=== PATIENT | female | born 1960 | race Caucasian/White ===

== ENCOUNTER 2019-12-14 21:41 | Emergency (ER) | payer BC ==
[2019-12-14] MEDS ORDERED: Sodium Chloride 0.9% 1,000 ML IV ONE (21:42)
[2019-12-14] MEDS ORDERED: Lactated Ringers 1,000 ML IV ONE (21:42)
[2019-12-14] MEDS ORDERED: Heparin Sodium 5,000 Units/ML Vial IVPUSH STA (22:04)
[2019-12-14] MEDS ORDERED: Heparin Sodium/D5W 25,000 UNITS/500 ML BAG IV SCH (22:15)
[2019-12-14] MEDS ORDERED: EPINEPHrine 1:10,000 1 MG/10 ML Syringe ONE ×2 (22:19→22:20)
--- NOTE | 2019-12-14 22:28 | EDM.PDOC ---
ED HPI GENERAL MEDICAL PROBLEM - General Chief Complaint: Respiratory Problem Stated Complaint: SOB Time Seen by Provider: 12/14/19 21:55 Source of Information: Reports: Patient, Family () History Limitations: Reports: No Limitations - History of Present Illness INITIAL COMMENTS - FREE TEXT/NARRATIVE: Mrs. Patricio is a very pleasant 59-year-old woman with a past medical history significant for obesity, hypertension, obstructive sleep apnea on nightly CPAP, and prediabetes, who states that she underwent a D&C at [facility] on 12/04. She was discharged home the same day. She states that she developed dyspnea 2 days later, on 12/06/2019, which has become progressively worse. Today it was especially bad. She has had a slight nonproductive cough. No recent fever. No recent chest pain or palpitations. No prior similar symptoms. She has not any [id number] or home remedies to attempt to treat her symptoms. The D&C apparently revealed a low-grade endometrial carcinoma. The patient will require a hysterectomy. The patient's tells me that the patient was given a single dose of (likely subcutaneous heparin) on the day of her D&C, but no anticoagulant since. Here in the ED, the patient is noted to be tachycardic, tachypneic, hypothermic , and hypoxemic, with an oxygen saturation of 81% on room air. The patient's PCP is Dr. Candie Kelley. Her OB/Gyne is Dr. Yovana Viera. - Related Data Allergies Allergy/AdvReac Type Severity Reaction Status Date / Time No Known Allergies Allergy Verified 12/14/19 22:03 Past Medical History Cardiovascular History: Reports: Hypertension Respiratory History: Reports: Sleep Apnea (nightly CPAP) Endocrine/Metabolic History: Reports: Obesity/BMI 30+, Other (See Below) ( Prediabetes) - Past Surgical History HEENT Surgical History: Reports: Tonsillectomy Female Surgical History: Reports: D&C (12/04/2019) Social & Family History - Tobacco Use Smoking Status *Q: Former Smoker Month/Year Tobacco Last Used: Quit before 1987 - Alcohol Use Alcohol Use History: Yes Alcohol Use Frequency: Socially - Recreational Drug Use Recreational Drug Use: No - Living Situation & Occupation Living situation: Reports: , with Spouse Occupation: Employed (Cooks and cleans for the homebound) ED ROS GENERAL - Review of Systems Review Of Systems: Comprehensive ROS is negative, except as noted in HPI. ED EXAM, GENERAL - Physical Exam Exam: See Below Exam Limited By: No Limitations General Appearance: Alert, WD/WN, Severe Distress (While she cannot speak in full sentences, she appears to be in extremis, with tachycardia, tachypnea, hypoxia, diaphoresis, and mottling) Eye Exam: Bilateral Eye: EOMI, Normal Inspection Ears: Normal External Exam, Hearing Grossly Normal Nose: Normal Inspection Throat/Mouth: Normal Inspection, Normal Lips, Normal Voice, No Airway Compromise Head: Atraumatic, Normocephalic Neck: Normal Inspection, Full Range of Motion Respiratory/Chest: No Respiratory Distress, Lungs Clear, Normal Breath Sounds, No Accessory Muscle Use. No: Decreased Breath Sounds, Crackles, Rhonchi, Wheezing, Stridor, Prolonged Expiration Cardiovascular: Normal Peripheral Pulses, No Gallop, No JVD, No Murmur, No Rub, Tachycardia (regular) Peripheral Pulses: 1+: Radial (L), Radial (R) GI/Abdominal: Normal Bowel Sounds, Soft, Non-Tender, No Organomegaly, No Distention, No Abnormal Bruit, No Mass (Female) Exam: Deferred Rectal (Female) Exam: Deferred Back Exam: Normal Inspection, Full Range of Motion, NT Extremities: Normal Range of Motion, Normal Capillary Refill, Other (Chronic stasis changes of both legs, including hyperpigmentation and brawny edema) Neurological: Alert, Oriented, Normal Cognition, No Motor/Sensory Deficits Psychiatric: Normal Affect Skin Exam: Intact, No Rash, Cool, Diaphoretic (significant), Mottled ( generalized), Pallor, Other (flushed petichiae bilateral cheeks) ED RESPIRATORY PROCEDURES - Endotracheal Intubation Time of Intubation: 22:10 ET Intubation Indication: Respiratory Failure, Cardiac Arrest Preparation: Suction, Balloon Tested, BVM Set Up Airway Assessment: Obese Pre-Oxygenation: Assisted with BVM, 100% FiO2 Placement: Orotracheal, Cuffed, Uncomplicated Placement Cords Visualized: Yes, Grade 3 ETT Size In mm: 8.0 Number of Attempts: 1 Confirmed By: CO2 Indicator, Bilateral Breath Sounds Tube Secured By: By RT Endotracheal Intubation Comment: Expiratory fog in tube EKG INTERPRETATION EKG Date: 12/14/19 Time: 22:00 Rhythm: Other (Sinus tachycardia) Rate (Beats/Min): 107 [place]: Other (Extreme axis: +247 or -113) P-Wave: Present QRS: Normal (Late transition) ST-T: Normal QT: Prolonged (QTc 493 ms) Comparison: NA - No Prior EKG Course - Vital Signs Last Recorded V/S: Last Vital Signs Temp 35 C L 12/14/19 21:54 Pulse 106 H 12/14/19 21:54 Resp 30 H 12/14/19 21:54 BP 130/99 H 12/14/19 21:54 Pulse Ox 81 L 12/14/19 21:54 - Orders/Labs/Meds Orders: Active Orders 24 hr Category Date Time Status EKG Documentation Completion [RC] STAT Care 12/14/19 22:00 Ordered Chest 1V Frontal [CR] Stat Exams 12/14/19 22:00 Ordered CBC WITH MANUAL DIFF [HEME] Stat Lab 12/14/19 22:00 Ordered COMPREHENSIVE METABOLIC PN,CMP [CHEM] Stat Lab 12/14/19 22:00 Ordered CULTURE BLOOD [BC] Stat Lab 12/14/19 22:01 Ordered CULTURE BLOOD [BC] Stat Lab 12/14/19 22:01 Ordered D-DIMER QUANTITATIVE [COAG] Stat Lab 12/14/19 22:00 Ordered INR,PT,PROTHROMBIN TIME [COAG] Stat Lab 12/14/19 22:00 Ordered LACTIC ACID [CHEM] Stat Lab 12/14/19 22:00 Ordered PRO B-TYPE NATRIUR PEPT,BNPPRO [CHEM] Stat Lab 12/14/19 22:00 Ordered PTT,PARTIAL THROMBOPLSTIN TIME [COAG] Stat Lab 12/14/19 22:00 Ordered TROPONIN I [CHEM] Stat Lab 12/14/19 22:00 Ordered Heparin Sodium/D5W [Heparin 25,000 Units in D5W 500 ML] Med 12/14/19 22:15 Ordered 25,000 units in 500 ml IV TITRATE Blood Culture x2 Reflex Set [OM.PC] Stat Oth 12/14/19 22:00 Ordered Medication Orders Heparin Sodium/Dextrose (Heparin 25,000 Units In D5w 500 Ml) 25,000 units in 500 mls @ 26 mls/hr IV TITRATE JUMA; Protocol Meds: Medications Generic Name Dose Route Start Last Admin Trade Name Freq PRN Reason Stop Dose Admin Heparin Sodium/Dextrose 25,000 units in 500 mls @ 26 mls/hr 12/14/19 22:15 Heparin 25,000 Units In D5w 500 Ml IV TITRATE JUMA Protocol 1,300 UNITS/HR Discontinued Medications Generic Name Dose Route Start Last Admin Trade Name Ruben PRN Reason Stop Dose Admin Alteplase, Recombinant Confirm 12/14/19 22:14 Activase Administered 12/14/19 22:15 Dose 100 mg .ROUTE .STK-MED ONE Epinephrine HCl Confirm 12/14/19 22:19 Epinephrine 1:10,000 Administered 12/14/19 22:20 Dose 1 mg .ROUTE .STK-MED ONE Heparin Sodium (Porcine) 5,000 units 12/14/19 22:04 Heparin Sodium IVPUSH 12/14/19 22:05 .BOLUS STA - Re-Assessments/Exams Free Text/Narrative Re-Assessment/Exam: 12/14/19 22:08 While the patient is able to speak in full sentences, she is complaining of dyspnea, is tachycardic, tachypneic, hypoxic at 81% on room air, and is diaphoretic and mottled. Supplemental oxygen has been placed. I am concerned about an imminent cardiopulmonary arrest. I have ordered a work-up that includes blood work, an ABG, 2 sets of blood cultures, and a portable chest x- ray. An ECG has already been obtained per triage, which was remarkable for sinus tachycardia, extreme axis deviation, and QTc prolongation. Because I think the likelihood that the patient has suffered a PE is so great, I have ordered a heparin bolus + gtt. 12/14/19 22:34 While dictating the above paragraph, the patient fell unresponsive and apneic. No pulse was palpated. A CODE BLUE was called, CPR was started, and she was moved into trauma room 2. I intubated the patient with an 8.0 OETT to 24 cm at the incisors, using a Mac 3 blade. Positive CO2 colorimetric change and expiratory fog in the tube. Breath sounds heard in the bilateral axillae. Because of the SIN device, a post-intubation PCXR was not possible. The patient underwent 6 rounds of epinephrine with periodic pulse and monitor checks. A SIN chest compression device was applied early. While the patient had an excellent right femoral artery pulse during chest compressions, no right femoral pulse was palpated upon cessation of chest compressions. Additionally, no left femoral pulse was palpated, even with chest compressions. The patient continued to have a bradycardic PEA, which did not change. Concerned that the patient's arrest may have been the result of a massive pulmonary embolus, the decision was made to administer tPA, however, this did not change the patient's condition. At 22:23, after 15 minutes of CPR, further efforts were deemed futile, and CPR was stopped. No palpable pulse or heart tones heard on auscultation. No spontaneous respiratory effort. No neurologic response to noxious stimuli. The patient was pronounced by me at 22:23. The patient has not previously been to this hospital, therefore we have no prior medical information. Following the patient's , I discussed her past medical history with her . The information entered into her PMHx, PSHx, and PSHx stems from that conversation. 12/14/19 23:40 Dr. Knowles, aluminum boats assembler, was contacted. He released the body to the home. I have filled out the patient's certificate, listing cardiopulmonary arrest due to massive pulmonary embolus. Departure - Departure Time of Disposition: 23:40 Disposition: 20 Preliminary Cause of *Q: Cardiac Arrest Clinical Impression: Pulmonary embolus - Discharge Information *PRESCRIPTION DRUG MONITORING PROGRAM REVIEWED*: Not Applicable *COPY OF PRESCRIPTION DRUG MONITORING REPORT IN PATIENT TORSTEN: Not Applicable Referrals: Candie Kelley MD [Primary Care Provider] - Yovana Viera MD [Ordering Only Provider] - Forms: ED Department Discharge Sepsis Event Note - Evaluation Sepsis Screening Result: No Definite Risk - Focused Exam Vital Signs: Vital Signs Temp Pulse Resp BP Pulse Ox 12/14/19 21:54 35 C L 106 H 30 H 130/99 H 81 L Date Exam was Performed: 12/14/19 Time Exam was Performed: 23:39 - My Orders Last 24 Hours: My Active Orders 12/14/19 22:00 EKG Documentation Completion [RC] STAT Chest 1V Frontal [CR] Stat CBC WITH MANUAL DIFF [HEME] Stat COMPREHENSIVE METABOLIC PN,CMP [CHEM] Stat D-DIMER QUANTITATIVE [COAG] Stat INR,PT,PROTHROMBIN TIME [COAG] Stat LACTIC ACID [CHEM] Stat PRO B-TYPE NATRIUR PEPT,BNPPRO [CHEM] Stat PTT,PARTIAL THROMBOPLSTIN TIME [COAG] Stat TROPONIN I [CHEM] Stat Blood Culture x2 Reflex Set [OM.PC] Stat 12/14/19 22:01 CULTURE BLOOD [BC] Stat CULTURE BLOOD [BC] Stat 12/14/19 22:15 Heparin Sodium/D5W [Heparin 25,000 Units in D5W 500 ML] 25,000 units in 500 ml IV TITRATE - Assessment/Plan Last 24 Hours: My Active Orders 12/14/19 22:00 EKG Documentation Completion [RC] STAT Chest 1V Frontal [CR] Stat CBC WITH MANUAL DIFF [HEME] Stat COMPREHENSIVE METABOLIC PN,CMP [CHEM] Stat D-DIMER QUANTITATIVE [COAG] Stat INR,PT,PROTHROMBIN TIME [COAG] Stat LACTIC ACID [CHEM] Stat PRO B-TYPE NATRIUR PEPT,BNPPRO [CHEM] Stat PTT,PARTIAL THROMBOPLSTIN TIME [COAG] Stat TROPONIN I [CHEM] Stat Blood Culture x2 Reflex Set [OM.PC] Stat 12/14/19 22:01 CULTURE BLOOD [BC] Stat CULTURE BLOOD [BC] Stat 12/14/19 22:15 Heparin Sodium/D5W [Heparin 25,000 Units in D5W 500 ML] 25,000 units in 500 ml IV TITRATE
== END 2019-12-14 23:54 | disposition expired ==
LOC: JD.ED 21:41
DX: I26.99 Other pulmonary embolism without acute cor pulmonale (principal); E66.9 Obesity, unspecified; I10 Essential (primary) hypertension; Z87.891 Personal history of nicotine dependence
CPT/HCPCS: 31500; 43752; 92950; 99285; J0171; J2997; J7030; J7120; 93010